=== PATIENT | male | born 1970 | race Two or more races ===

== ENCOUNTER 2021-03-26 01:37 | Emergency (ER) | payer OTHER ==
[~2021-03-26] VITALS: Ht 170.2 cm; Wt 115.7 kg
[2021-03-26] MEDS ORDERED: INDOMETHACIN 25 MG CAP PO ONE (02:15)
[2021-03-26] MEDS ORDERED: methylPREDNISolone SOD SUCC 125 MG/2 ML VL IM ONE (02:15)
[2021-03-26] MEDS ORDERED: INDO50CA82 PO (02:58)
[2021-03-26] MEDS ORDERED: MORPHINE SULFATE INJECTION 2 MG/ML SYRG IM ONE (03:45)
[2021-03-26 03:58] VITALS: BP 174/114
== END 2021-03-26 04:41 | disposition home or self-care (01) ==
LOC: ER 01:41
DX: M10.072 Idiopathic gout, left ankle and foot (principal)
CPT/HCPCS: 73630; 96372; 99284; J2270; J2930